=== PATIENT | female | born 1985 | race Two or more races ===

== ENCOUNTER 2016-08-28 07:00 | Inpatient (IN) | payer MEDICAID ==
[2016-08-30] MEDS ORDERED: TERBUTALINE SULFATE 1 MG/ML VIAL SUB-Q ONE (07:22)
[2016-08-30] MEDS ORDERED: LACTATED RINGERS 1,000 ML IV SCH ×2 (07:30→09:30)
[2016-08-30 08:00] VITALS: BMI 44.7
[2016-08-30] MEDS ORDERED: CEFAZOLIN SODIUM 2 GRAM DUPLEX 2 G in Premix (D5W) 50 ml 1 EACH IV PRN (09:17)
[2016-08-30 09:22] LABS: HEMATOCRIT 36.1 % (37.0-47.0); HEMOGLOBIN 11.6 gm/l (12.0-16.0); MEAN CELL VOLUME 84.9 fl (81.0-99.0); MEAN CORPUSCULAR HEMOGLOBIN 27.3 pg (27.0-31.0); MEAN CORPUSCULAR HGB CONC 32.1 g/dl (33.0-37.0)
[2016-08-30] MEDS ORDERED: CEFAZOLIN SODIUM 2 GRAM DUPLEX 50 ML IV ONE (09:31)
[2016-08-30] MEDS ORDERED: SPINAL PROCEDURAL TRAY 1 EACH ONE (10:30)
[2016-08-30] MEDS ORDERED: MORPHINE SULFATE (DURAMORPH) 1 MG/ML 10ML AMP ONE (10:34)
[2016-08-30] MEDS ORDERED: FENTANYL 100 MCG/2 ML VIAL ONE (10:34)
--- NOTE | 2016-08-30 10:46 | PCMAN ---
OB Admission Note - History : 2 Term: 1 : 0 Abortions (S&E): 0 Livin Gestational Age (weeks): 40 Days (#/7): 2 Admit Cervical Dilation:: closed Admit Cervical Effacement (%):: 0 Admit Presentaton:: Breech, with head in LUQ Membrane Status: Intact Contractions: Yes Contraction Frequency:: 6 Heart Rate:: 140 (category 1) Status:: good but still BREECH EFW:: 7.5lbs Summary of Course:: Uncomplicated with EDC established by 9wk US. Weight gain of approx 27lbs. Normal blood pressures and testing throughout the . Anna came in this morning for an external version. This was attempted 3 times with the benefit of SQ terbutaline for tocolysis. Unfortunately we were unable to turn this baby girl: she remains in a breech presentation with head in LUQ. See dictated note. - Labs Blood Type: A (+) positive Hct/Hgb:: Hgb 11.6 Rubella Status: Immune GBS Status: Negative Abnormal Labs: None Other Labs:: Quad screen neg - Review of Systems Neg ROS. Pt denies any sx of real labor. - Physical Exam Psych/Mental Status: Mood/Affect Appropriate, Judgment/Insight Intact (American is excellent. mostly speaks cameroonian but pt is able to translate.) Neurological: Grossly Intact, Normal Speech HEENT: Atraumatic Lungs: Clear to Auscultation Bilaterally Cardiovascular: Regular Rate and Rhythm Abdomen: Normal Bowel Sounds Genitourinary: Other (Not indicated at thistime.) Skin: Normal Color, Warm, Dry - Problems (1) Breech Status: Acute Code: O32.1XX0 Assessment/Plan: Anna is at 40w2d EGA, having some mild irreg contractions. An ext version was attempted this morning but was not succesful. Options were reviewed with pt and her . Primary c/section for delivery was recommended. Pt agrees and gives her consent after discussing possible complications and answering her questions. Plan is to proceed with surgery as soon as room and staff are available.
[2016-08-30] MEDS ORDERED: ONDANSETRON 4 MG/2ML 2 ML VIAL ONE (10:57)
[2016-08-30] MEDS ORDERED: PHENYLEPHRINE 10 MG/1 ML (1%) VIAL ONE (10:57)
[2016-08-30] MEDS ORDERED: OXYTOCIN 10 UNITS/ML VIAL ONE ×2 (10:57→11:57)
[2016-08-30] MEDS ORDERED: SODIUM CHLORIDE 0.9% FLUSH 10 ML ONE (10:57)
[2016-08-30] MEDS ORDERED: EPHEDRINE SULFATE 50 MG/ML 1ML VIAL IV PRN (11:38)
[2016-08-30] MEDS ORDERED: NALOXONE HCL 0.4 MG/ML VIAL IV PRN (11:38)
[2016-08-30] MEDS ORDERED: ONDANSETRON 4 MG/2ML 2 ML VIAL IV PRN ×2 (11:38→12:53)
[2016-08-30] MEDS ORDERED: DIPHENHYDRAMINE HCL 50 MG/1 ML VIAL IV PRN ×2 (11:38→12:53)
[2016-08-30] MEDS ORDERED: PROMETHAZINE HCL 25 MG/ML VIAL IM PRN (11:38)
[2016-08-30] MEDS ORDERED: NALBUPHINE HCL 20 MG/ML AMP IV PRN (11:38)
[2016-08-30] MEDS ORDERED: HYDROMORPHONE HCL 2 MG/ML SYRINGE IV PRN (11:38)
[2016-08-30] MEDS ORDERED: KETOROLAC TROMETHAMINE 30 MG/ML 1 ML VIAL ONE (12:25)
--- NOTE | 2016-08-30 12:40 | PCMBPN ---
Brief Post Op Note: Date of Procedure: 08/30/16 Start Time: 11:32 Preoperative Diagnosis: 1. Persistent breech Postoperative Diagnosis: 1. Same Procedure: Primary C/section (lower uterine segment transverse incision.) Surgeon: Indigo Leal Assist:Fransico Koenig CNM Anesthesia: spinal, Moe Boateng CRNA Findings: Baby girl, footling breech LST, weight 7.5lbs, 9/9 Condition: Good Complications: none IV Fluids: 2200 mLs of LR Urine Output: 100 mLs Estimated Blood Loss: 800 mLs Tourniquet Time: N/A Specimens: N/A Implants: N/A Drains: N/A
[2016-08-30] MEDS ORDERED: DIPHENHYDRAMINE HCL 25 MG CAPSULE PO PRN (12:53)
[2016-08-30] MEDS ORDERED: DIPHTH,PERTUSS(ACELL),TET VAC 0.5 ML VIAL IM V ONE (12:53)
[2016-08-30] MEDS ORDERED: LANOLIN 50 APPLIC/7G TUBE TP PRN (12:53)
[2016-08-30] MEDS ORDERED: MEASLES,MUMPS&RUBELLA VACCINE 0.5 ML VIAL SUB-Q V ONE (12:53)
[2016-08-30] MEDS: LACTATED RINGERS 1,000 ML IV SCH ×2 (15:02→17:23)
[2016-08-30] MEDS: HYDROMORPHONE HCL 1 MG/ML SYRINGE IV PRN (17:22)
[2016-08-30] MEDS ORDERED: IV START KIT ONE (18:09)
[2016-08-30] MEDS: KETOROLAC TROMETHAMINE 30 MG/ML 1 ML VIAL IV SCH (19:09)
[2016-08-31] MEDS: LACTATED RINGERS 1,000 ML IV SCH ×4 (00:54→23:43)
[2016-08-31] MEDS: DOCUSATE SODIUM 100 MG CAPSULE PO SCH ×3 (00:54→23:54)
[2016-08-31] MEDS: KETOROLAC TROMETHAMINE 30 MG/ML 1 ML VIAL IV SCH ×2 (01:07→06:15)
[2016-08-31] MEDS: HYDROMORPHONE HCL 1 MG/ML SYRINGE IV PRN (02:30)
[2016-08-31 07:06] LABS: HEMATOCRIT 27.6 % (37.0-47.0); HEMOGLOBIN 8.8 gm/l (12.0-16.0); MEAN CELL VOLUME 86.8 fl (81.0-99.0); MEAN CORPUSCULAR HEMOGLOBIN 27.7 pg (27.0-31.0); MEAN CORPUSCULAR HGB CONC 31.9 g/dl (33.0-37.0); RED CELL DISTRIBUTION WIDTH 16.3 % (11.5-14.5)
--- NOTE | 2016-08-31 10:23 | PDOC44 ---
- Subjective Day: 1 (C/section for breech) Pt has been out of bed but reluctant to move. This was discussed. She was encouraged to get up and moving despite the surgical soreness. Reports Pain Tolerable, Reports , Reports Lochia Light - Objective Temp Pulse Resp BP Pulse Ox 98.1 F 76 16 106/51 96 08/31/16 07:39 08/31/16 07:39 08/31/16 07:39 08/31/16 07:39 08/30/16 15:53 Lab Results 08/31/16 06:00 WBC 7.5 RBC 3.18 L Hgb 8.8 L D Hct 27.6 L Plt Count 213 08/31/16 06:00 MCHC 31.9 L RDW 16.3 H Current Medications Generic Name Dose Route Start Last Admin Trade Name Freq PRN Reason Stop Dose Admin Diphenhydramine HCl 25 - 50 mg 08/30/16 11:38 Benadryl IV 08/31/16 11:38 Q4H PRN Itching Diphenhydramine HCl 25 - 50 mg 08/30/16 12:53 Benadryl PO Q6H PRN Itching (Mild/Moderate) Diphenhydramine HCl 25 - 50 mg 08/30/16 12:53 Benadryl IV Q6H PRN Itching (Severe) Docusate Sodium 100 mg 08/30/16 21:00 08/31/16 00:54 Colace PO Not Given BID JAVIER Emollient Ointment 1 applic 08/30/16 12:53 [id number] TP PRN PRN sore nipples Ephedrine Sulfate 5 - 10 mg 08/30/16 11:38 Ephedrine Sulfate IV 08/31/16 11:38 Q5M PRN Ferrous Sulfate 325 mg 08/31/16 09:00 Ferrous Sulfate PO DAILY JAVIER Hydromorphone HCl 0.5 - 2 mg 08/30/16 11:38 08/31/16 02:30 Dilaudid IV 08/31/16 11:38 1 mg Q1H PRN Administration Pain (Breakthrough) Hydromorphone HCl 0.5 - 2 mg 08/30/16 11:38 Dilaudid IV 08/31/16 11:38 Q1H PRN Pain Lactated Ringer's 1,000 mls @ 125 mls/hr 08/30/16 12:53 08/31/16 05:46 Lactated Ringers IV Not Given .Q8H JAVIER Ibuprofen 800 mg 08/30/16 18:30 Motrin PO Q6H PRN Pain Ketorolac Tromethamine 30 mg 08/30/16 18:30 08/31/16 06:15 Toradol IV 08/31/16 11:38 30 mg Q6H JAVIER Administration Ketorolac Tromethamine 30 mg 08/31/16 11:39 Toradol IV 09/04/16 12:30 Q6H PRN Pain (Mild/Moderate) Multivi/Iron Carb/Fe Sulf/FA/Prenat 1 tab 08/31/16 09:00 Plus PO DAILY JAVIER Nalbuphine HCl 1 - 5 mg 08/30/16 11:38 Nubain IV 08/31/16 11:38 Q4H PRN Itching Naloxone HCl 0.2 - 0.4 mg 08/30/16 11:38 Narcan IV 08/31/16 11:38 Q5M PRN Ondansetron HCl 4 mg 08/30/16 11:38 08/30/16 14:30 Zofran IV 08/31/16 11:38 4 mg Q6H PRN Administration Nausea/Vomiting Ondansetron HCl 4 mg 08/30/16 12:53 Zofran IV Q6H PRN Nausea/Vomiting Oxycodone HCl 5 - 10 mg 08/30/16 12:53 Roxicodone PO Q3H PRN Pain (Severe) Oxycodone/Acetaminophen 1 - 2 tab 08/30/16 12:53 Percocet 5/325 PO Q4H PRN Pain (Moderate) Promethazine HCl 6.25 - 12.5 mg 08/30/16 11:38 Phenergan IM 08/31/16 11:38 Q4H PRN Nausea/Vomiting Sodium Chloride 10 ml 08/30/16 17:00 08/31/16 06:16 Normal Saline 10ml Flush IV 10 ml Q8HR JAVIER Administration Sodium Chloride 10 ml 08/30/16 12:58 08/31/16 02:30 Normal Saline 10ml Flush IV 10 ml PRN PRN Administration - Physical Exam General: Afebrile Psych/Mental Status: Mood/Affect Appropriate, Bonding Well Neurological: Alert, Oriented x 4, Normal Speech Lungs: Clear to Auscultation Bilaterally Cardiovascular: Regular Rate and Rhythm Fundus: Firm, Below Umbilicus Abdomen: Hypoactive Bowel Sounds Lochia: Light Extremities: Full ROM Skin: Normal Color, Warm, Dry Wound [employer]CHO[employer]GE [employer]ER: Well Approximated (Small amount of bleeding from incision, but edges well approximated.) - Problems:Assessment/Plan (1) Breech Status: Acute Assessment/Plan: Anna is at 40w2d EGA, having some mild irreg contractions. An ext version was attempted this morning but was not succesful. Options were reviewed with pt and her . Primary c/section for delivery was recommended. Pt agrees and gives her consent after discussing possible complications and answering her questions. Plan is to proceed with surgery as soon as room and staff are available. 08/31/16 Pt is doing well this morning, but has not been out of bed much. Dressing was removed and incision inspected. This was discussed. A little serosanguinous discharge but no signs of collection or infection. Mild abd distention but audible bowel sounds. Plan: routine post-op care. Disposition: Anticipate DC Home Tomorrow
[2016-08-31] MEDS: OXYCODONE HCL 5 MG TABLET PO PRN ×2 (10:48→14:10)
[2016-08-31] MEDS: PRENATAL VIT/FE FUMARATE/FA 1 TABLET PO SCH (10:48)
[2016-08-31] MEDS: FERROUS SULFATE (65 Fe) 325 MG TABLET PO SCH (10:48)
[2016-08-31] MEDS ORDERED: KETOROLAC TROMETHAMINE 30 MG/ML 1 ML VIAL IV PRN (11:39)
--- NOTE | 2016-08-31 12:08 | OP ---
LESLIE RICHARDS : 1985 DATE OF OPERATION: August 30, 2016 PREOPERATIVE DIAGNOSES: 1. Persistent breech presentation. 2. Failed external version attempt. POSTOPERATIVE DIAGNOSES: 1. Persistent breech presentation. 2. Failed external version attempt. OPERATION PERFORMED: PRIMARY SECTION (LOWER UTERINE SEGMENT TRANSVERSE INCISION). SURGEON: Indigo Leal M.D. ELECTRONIC COMMERCE SPECIALIST: Fransico Koenig C.N.M. ANESTHESIA: Joey Peck.NRenata, spinal anesthesia. ESTIMATED BLOOD LOSS: 800 mL. FINDINGS: Include: Healthy baby girl in a footling breech presentation, left sacrum transverse. Weight 7 pounds 5 ounces, scores 9 at one minute and 9 at five minutes. She was born on [birth year], 2018 at 1146 hours. DETAILS OF PROCEDURE: On the morning of August 30, 2016, Leslie was admitted to the [facility] for an external version. An IV was placed and an ultrasound was done confirming the persistent breech presentation. After the usual preparations and after obtaining consent, the patient was given a dose of terbutaline subcutaneous. This was allowed to take effect. We then attempted an external manipulation to get this baby to turn. The placenta was noted to be on the left side of the uterus and in the fundus. The baby's head was in the left upper quadrant of the uterus and it was difficult to palpate it well. The baby's back was anterior or perhaps slightly to the left. Her breech was just above the pelvic inlet and both legs were tucked and flexed deep in the pelvis. We first attempted a reverse roll in a clockwise direction trying to bring the baby's head down into the pelvis while rotating the breech toward the patient's right side. This was not successful. Even though the baby did move some, as soon as I let go, she moved back to her original position. It was then felt that it was probably more likely to be successful if we do a forward roll. The breech was elevated as high up out of the pelvis as possible. This was a bit difficult due to the maternal body habitus. I was then able to palpate the head, and this was rotated in a counter-clockwise position in the fundus of the uterus towards the maternal right side. We were able to get the baby to move her head into the right upper quadrant and actually almost into a transverse lie, but then the baby flipped back of her own accord. I tried this two more times, each time giving the baby a chance to kick her buttocks upward and bring her head down, but she really did not move adequately. As soon as I let go, she would revert back to her original position. We were monitoring the heart rate either with the heart monitor or with the ultrasound. There were no decelerations noted. After these attempts, I felt that further manipulation was not going to be effective. I explained this to the patient. We talked about the other options. It was recommended that we proceed with a primary section once the team was assembled. Patient understood and agreed with this plan. The consent for a primary section was therefore reviewed in detail. Her questions were answered. The patient signed this form. Her was also present in the room at this time. Because of other deliveries on the unit, we did not get started until just after 11:00 a.m. Both the patient and the baby were doing well. It was a reactive nonstress test after the attempted version. Leslie was brought to the operating room in the main operating room area. She was placed on the operating room table in a sitting position. The usual monitoring leads were placed. Spinal anesthesia was then administered without difficulty. She was then placed in a supine position with a wedge under the right hip. The heart tones were then auscultated for a while and then a Flores catheter was placed. The abdomen was then prepped and draped for a transverse suprapubic incision. A timeout was performed verifying proper patient, procedure, position, personnel and equipment. After verifying an adequate level of anesthesia, a transverse incision was made above the symphysis pubis with the first knife. This was carried down through a thick adipose layer with sharp and blunt dissection and using cautery for hemostasis. The fascia was exposed and then incised the length of the incision. It was mobilized superiorly and inferiorly. The muscles were in the midline. The peritoneum was identified and opened vertically. There was a small amount of free fluid in the peritoneal cavity. The presenting part under the lower uterine segment was the baby's feet and these were active. The lower uterine segment was fairly well developed but the bladder reflection was difficult to see because of the patient's adiposity. The visceral peritoneum was opened transversely across the lower uterine segment and the bladder was mobilized inferiorly. A transverse incision was then made in the lower uterine segment with a scalpel. This was carefully carried down to the membranes. The incision was extended by gentle traction in a cephalocaudad direction. The membranes were then ruptured, and the baby presented both of her rather large feet. She was in a left sacrum transverse position. The legs were easily delivered. The torso was delivered followed by both arms in the usual fashion. The head was then gently eased out through the uterine incision. This was a baby girl who actually started to cry even before her head was completely out. She then was silent for about 30 seconds. We did allow her cord to continue pulsating for about one minute, then it was clamped and cut. The baby was handed to the resuscitation nurse for evaluation. By this time, she was looking around and moving and just starting to cry well. The placenta was delivered without difficulty. Cord blood was obtained. The uterus was explored and all blood clots and debris were removed. We were not able to easily bring the uterus out of the abdominal cavity, so it was repaired in place. An initial continuous interlocking suture of #1 Chromic was used to close the uterine incision. A second layer was used to imbricate this first layer. This gave excellent hemostasis. The uterine tone was good. The pelvis was then well irrigated with warm saline, and hemostasis was again verified. The Anshul retractor was removed without difficulty. It had been placed after opening the peritoneal cavity. The pelvis was then further irrigated and all blood clots and debris were removed. Lap, sponge and instrument counts were reported as correct. The abdomen was then closed in layers as follows: The peritoneum and muscle were reapproximated in the midline with #2-0 Vicryl and then some interrupted sutures of #0 Vicryl. The fascia was then closed the length of the incision with #0 PDS suture on a looped needle. The adipose layer was closed with some #2-0 plain and the skin was reapproximated with #4-0 Monocryl. SteriStrips were placed followed by a bandage. The patient was then cleaned up. Eventually she was transferred to her bed and taken to her labor and delivery recovery room in stable condition.
[2016-08-31] MEDS: IBUPROFEN 800 MG TABLET PO PRN ×2 (14:11→23:53)
[2016-08-31] MEDS: OXYCODONE/ACETAMINOPHEN 5/325 MG TABLET PO PRN ×2 (18:19→23:53)
[2016-09-01] MEDS: OXYCODONE/ACETAMINOPHEN 5/325 MG TABLET PO PRN ×3 (05:59→15:28)
[2016-09-01] MEDS: IBUPROFEN 800 MG TABLET PO PRN ×2 (05:59→15:28)
--- NOTE | 2016-09-01 08:03 | PDOC39B ---
Hospital Course: ADMIT DATE: 08/30/16 DISCHARGE DATE: 09/01/17 ADMISSION DIAGNOSES: term , breech presentation PROCEDURES: attempted external cephalic version, primary low transverse csection HISTORY OF PRESENT ILLNESS: 31 year old G2 T1 L1 at 40 weeks 3 days presenting with breech presentation. HOSPITAL COURSE: The patient had an attempted version, which was not successful. Subsequently pt had a primary low transverse . The procedure was uncomplicated. Delivered a female 7lbs 9oz, 9/9 apgars. Pt had uncomplicated postoperative course. By day of discharge the patient is ambulating, eating, voiding, and passing flatus without difficulty. Pain is controlled and lochia is appropriate. She is []. Pt is discharged on POD#2 in stable condition with rx percocet , iron. Vital Signs - 8 hr 09/01/16 05:30 Temperature 98.1 F Pulse Rate 113 Respiratory 22 Rate Blood Pressure 147/76 Laboratory Tests 08/30/16 08/31/16 07:30 06:00 WBC 5.6 7.5 RBC 4.25 3.18 L Hgb 11.6 L 8.8 L D Hct 36.1 L 27.6 L MCV 84.9 86.8 MCH 27.3 27.7 MCHC 32.1 L 31.9 L RDW 16.0 H 16.3 H Plt Count 286 213 - Physical Exam Vital Signs: Temp Pulse Resp BP Pulse Ox 98.1 F 113 22 147/76 96 09/01/16 05:30 09/01/16 05:30 09/01/16 05:30 09/01/16 05:30 08/30/16 15:53
[2016-09-01] MEDS: DOCUSATE SODIUM 100 MG CAPSULE PO SCH (10:30)
[2016-09-01] MEDS: PRENATAL VIT/FE FUMARATE/FA 1 TABLET PO SCH (10:30)
[2016-09-01] MEDS: FERROUS SULFATE (65 Fe) 325 MG TABLET PO SCH (10:30)
[2016-09-01 15:11] VITALS: BP 117/60
== END 2016-09-01 16:35 | disposition home or self-care (01) | DRG 766 ==
LOC: EDSTATUS 07:00 → FBCOUT 10:33 → FBC 10:35
PROVIDERS: ADMIT Obstetrics & Gynecology; ATTEND Obstetrics & Gynecology
PROC: 10D00Z1 Extraction of Products of Conception, Low, Open Approach (ICD-10-PCS; principal; 2016-08-30)
PROC: 10S0XZZ Reposition Products of Conception, External Approach (ICD-10-PCS; 2016-08-30)
DX: O32.1XX0 Maternal care for breech presentation, not applicable or unspecified (principal); Z37.0 Single live birth; O48.0 Post-term pregnancy; Z3A.40 40 weeks gestation of pregnancy

== ENCOUNTER 2016-09-03 14:42 | Outpatient (CLI) | payer MEDICAID | END 2016-09-03 14:43 | disposition home or self-care (01) | LOC: BABIESSH 14:42 | PROVIDERS: ATTEND Advanced Practice Midwife | DX: Z39.1 Encounter for care and examination of lactating mother (principal) ==